=== PATIENT | female | born 1940 | race Caucasian/White ===

== ENCOUNTER 2018-06-18 14:27 | Emergency (ER) | payer MEDICARE, SELFPAY ==
[~2018-06-18] VITALS: Ht 160 cm; Wt 63.6 kg
[2018-06-18 14:33] VITALS: BP 118/89
== END 2018-06-18 15:25 | disposition left against medical advice (07) ==
LOC: ED 15:19
DX: R51 Headache (principal)
CPT/HCPCS: 99281

== ENCOUNTER 2018-11-24 16:47 | Emergency (ER) | payer MEDICARE, OTHER ==
[~2018-11-24] VITALS: Ht 157.5 cm; Wt 63.8 kg
[2018-11-24 16:47] VITALS: BP 109/79
[2018-11-24 17:48] LABS: BASOPHILS # (AUTO) 0.09 x10^3/uL (0-0.1); BASOPHILS % (AUTO) 1 % (0-1); EOSINOPHILS # (AUTO) 0.12 x10^3/uL (0-0.4); EOSINOPHILS % (AUTO) 1 % (1-7); LYMPHOCYTES % (AUTO) 15 % (22-44); MD NO; MEAN CORPUSCULAR HEMOGLOBIN 29.3 pg (27.0-34.8); MEAN CORPUSCULAR HGB CONC 33.6 g/dL (32.4-35.8); MEAN CORPUSCULAR VOLUME 87.2 fL (80-100); MEAN PLATELET VOLUME 8.1 fL (7.4-10.4); MONOCYTES # (AUTO) 0.87 x10^3/uL (0.2-0.8); MONOCYTES % (AUTO) 8 % (2-9); NEUTROPHILS # (AUTO) 7.73 x10^3/uL (1.8-6.8); NEUTROPHILS % (AUTO) 75 % (42-75); PLATELET COUNT 309 x10^3/uL (130-400); RED BLOOD COUNT 4.88 x10^6/uL (3.82-5.3); RED CELL DISTRIBUTION WIDTH 17.9 % (9.6-15.2)
[2018-11-24 17:53] LABS: ALBUMIN 3.4 g/dL (3.4-5.0); ANION GAP 7 mmol/L (5-15); CALCIUM 8.3 mg/dL (8.5-10.1); CHLORIDE 107 mmol/L (98-107); CREATININE 0.68 mg/dL (0.55-1.02)
== END 2018-11-24 18:43 | disposition home or self-care (01) ==
LOC: ED 18:34
DX: R55 Syncope and collapse (principal)
CPT/HCPCS: 36415; 80048; 82040; 85025; 93005; 99284

== ENCOUNTER 2019-06-10 09:56 | Observation (INO) | payer SELFPAY ==
[~2019-06-10] VITALS: Ht 162.6 cm; Wt 64.3 kg
[2019-06-15 19:14] VITALS: BP 114/60
== END 2019-06-16 11:38 | disposition left against medical advice (07) ==
LOC: ED 12:17 → EDIP 15:47 → INTOOBSV 15:47 → 4WST 17:23 → 3NE 06-13 11:47
PROVIDERS: ADMIT Hospitalist; ATTEND Hospitalist
DX: G93.40 Encephalopathy, unspecified (principal); E87.0 Hyperosmolality and hypernatremia; E86.0 Dehydration; E53.8 Deficiency of other specified B group vitamins; R41.0 Disorientation, unspecified; Z87.891 Personal history of nicotine dependence; Z11.59 Encounter for screening for other viral diseases
CPT/HCPCS: 36415; 70450; 71045; 80053; 81001; 82607; 83605; 83735; 84100; 84145; 84443; 85025; 85610; 85651; 86140; 86592; 87040; 87086; 87806; 92523; 93005; 96361; 96372; 96374; 96376; 99284; C9113; G0378; G0515; J3420; J7030; G0475

== ENCOUNTER 2020-07-05 15:57 | Emergency (ER) | payer SELFPAY ==
[~2020-07-05] VITALS: Ht 157.5 cm; Wt 64.0 kg
[2020-07-05] MEDS ORDERED: ONDANSETRON 2MG/ML, 2ML ONE (17:24)
[2020-07-05] MEDS ORDERED: ONDANSETRON 2MG/ML, 2ML IVPush ONE (17:30)
[2020-07-05] MEDS ORDERED: SODIUM CHLORIDE 0.9% 1,000ML IVBOLUS ONE (17:30)
[2020-07-05] MEDS ORDERED: SODIUM CHLORIDE FLUSH 10ML SYR IVF ONE (17:30)
[2020-07-05 17:47] LABS: BASOPHILS # (AUTO) 0.04 x10^3/uL (0-0.1); BASOPHILS % (AUTO) 1 % (0-1); EOSINOPHILS # (AUTO) 0.07 x10^3/uL (0-0.4); EOSINOPHILS % (AUTO) 1 % (1-7); LYMPHOCYTES % (AUTO) 14 % (22-44); MD NO; MEAN CORPUSCULAR HEMOGLOBIN 30.8 pg (27.0-34.8); MEAN CORPUSCULAR HGB CONC 32.8 g/dL (32.4-35.8); MEAN CORPUSCULAR VOLUME 93.7 fL (80-100); MEAN PLATELET VOLUME 9.1 fL (7.4-10.4); MONOCYTES # (AUTO) 0.49 x10^3/uL (0.2-0.8); MONOCYTES % (AUTO) 6 % (2-9); NEUTROPHILS # (AUTO) 6.05 x10^3/uL (1.8-6.8); NEUTROPHILS % (AUTO) 78 % (42-75); PLATELET COUNT 245 x10^3/uL (130-400); RED BLOOD COUNT 4.93 x10^6/uL (3.82-5.3)
[2020-07-05 17:53] LABS: ALANINE AMINOTRANSFERASE 14 U/L (12-78); ALBUMIN 3.8 g/dL (3.4-5.0); ANION GAP 5 mmol/L (5-15); CALCIUM 8.6 mg/dL (8.5-10.1); CHLORIDE 109 mmol/L (98-107); CREATININE 0.73 mg/dL (0.55-1.02)
[2020-07-05 17:55] LABS: ALKALINE PHOSPHATASE 98 U/L (45-117); BILIRUBIN,TOTAL 0.4 mg/dL (0.2-1.0); TOTAL PROTEIN 7.5 g/dL (6.4-8.2)
[2020-07-05 18:11] LABS: MICROSCOPIC INDICATED
[2020-07-05 18:15] LABS: ACETONE, SERUM Negative (Negative)
--- NOTE | 2020-07-05 18:39 | NUR ---
ALL RESULTS ARE BACK AT THIS TIME. CHART UP FOR RECHECK.
[2020-07-05] MEDS ORDERED: CEFDINIR 300 MG CAPSULE PO ONE (19:00)
[2020-07-05] MEDS ORDERED: CEFDINIR 300 MG CAPSULE ONE (19:11)
[2020-07-05 19:12] VITALS: BP 136/85
== END 2020-07-05 19:15 | disposition home or self-care (01) ==
LOC: ED 19:09
DX: R10.84 Generalized abdominal pain (principal); N39.0 Urinary tract infection, site not specified; R11.2 Nausea with vomiting, unspecified; R19.7 Diarrhea, unspecified; G30.9 Alzheimer's disease, unspecified; F17.200 Nicotine dependence, unspecified, uncomplicated
CPT/HCPCS: 36415; 80053; 81001; 82010; 83690; 83735; 85025; 86850; 86900; 96361; 96374; 99283; J2405; J7030